=== PATIENT | male | born 1955 | race Caucasian/White ===

== ENCOUNTER 2017-12-09 08:16 | Emergency (ER) | payer BC, OTHER ==
[~2017-12-09] VITALS: Ht 175.3 cm; Wt 82.0 kg
[~2017-12-09 08:16] MED LIST: ACID CONTROL150 MG PO; ADULT LOW DOSE81 M1 PO; ASCORBIC ACID500 M3 PO; ASPIRIN E.C.81 M1 PO; Aranesp IV; BENTYL20 MG PO; CLOTRIMAZOLE10 MG PO; COLACE100 MG PO; DILAUDID2 MG PO; DOCUSATE SODIU100 MG PO; DOXYCYCLINE HY100 M3 PO; FEOSOL325 MG PO; FLOMAX0.4 MG PO; IRON55 MG PO; LASIX20 MG PO; LASIX40 MG PO; LEFLUNOMIDE10 MG PO; LEFLUNOMIDE20 MG PO; LEVEMIR FL100 UNITS/ SC; LOPRESSOR25 MG PO; LYRICA150 MG PO; LYRICA75 MG PO; MAG-OXIDE400 MG PO; MULTIVITAMIN1 EAC2 PO; MYFORTIC360 MG PO; NORVASC5 MG PO; NOVOLOG PE100 UNITS/ SC; Nephro-Vite,Rena-Vit PO; OXYCODONE HCL10 MG PO; PANTOPRAZOLE SO40 MG PO; PREDNISONE10 MG PO; PREDNISONE5 MG PO; PROGRAF0.5 MG PO; PROGRAF1 MG PO; REGLAN5 MG PO; RESTASIS 01 DROP/0.4 RIGHT EYE; ROCALTROL0.25 MCG PO; Rocaltrol PO; SEPTRA 80-4001 EACH PO; TACROLIMUS ANHYD1 MG PO; TRAMADOL HCL50 MG PO; TYLENOL EXTRA500 MG PO; Tylenol Regular Stre PO; VALCYTE450 MG PO; VENOFER20 MG/ML IV; VIBRAMYCIN100 MG PO; VITAMIN D1000 INTUN PO; VITAMIN D2000 INTUN PO; ZOCOR20 MG PO; ZYVOX600 MG PO; Zocor PO
[2017-12-09 09:54] LABS: BASOPHIL (%) 0.2 % (0-1); EOSINOPHIL (%) 0 % (0-5); HEMATOCRIT 32.1 % (38.0-50.0); HEMOGLOBIN 10.8 G/DL (12.5-16.6); IMMATURE GRANULOCYTE (%) 0.8 % (0.0-0.7); LYMPHOCYTE (%) 2.8 % (15-42); LYMPHOCYTE COUNT 0.5 K/uL (1.0-2.8); MCH 27.1 PG (29.0-34.0); MCHC 33.6 G/DL (30.0-36.0); MCV 80.7 FL (86-99); MONOCYTE (%) 7.8 % (3-12); MONOCYTE COUNT 1.3 K/uL (0-0.8); NEUTROPHIL (%) 88.4 % (45-76); NEUTROPHIL COUNT 15.2 K/uL (1.8-6.4); PLATELET COUNT 205 K/uL (156-360); RBC DIS.WIDTH-CV 16.4 % (11.8-14.6); RBC DIS.WIDTH-SD 48.5 % (39-53); RED BLOOD COUNT 3.98 M/uL (4.00-5.50); WHITE BLOOD COUNT 17.2 K/uL (4.1-10.2)
[2017-12-09 10:04] LABS: ALBUMIN 3.6 g/dL (3.2-4.8)
[2017-12-09 10:05] LABS: CHLORIDE 102 mEq/L (99-109); POTASSIUM 3.3 mEq/L (3.7-5.4); SODIUM 136 mEq/L (136-147)
[2017-12-09 10:07] LABS: GLUCOSE 113 mg/dL (70-99); TOTAL PROTEIN 6.5 g/dL (6.4-8.3)
[2017-12-09 10:09] LABS: TOTAL BILIRUBIN 0.8 mg/dL (0.0-1.0)
[2017-12-09 10:10] LABS: ALKALINE PHOSPHATASE 135 IU/L (3-129)
[2017-12-09 10:11] LABS: CREATININE 0.8 mg/dL (0.6-1.3); GFR ESTIMATE (CALCULATED) > 59 mL/min/ (58.99-99999)
[2017-12-09 10:12] LABS: AST (GOT) 28 IU/L (2-34); UREA NITROGEN (BUN) 14 mg/dL (9-23)
[2017-12-09 10:13] LABS: ALT (GPT) 16 IU/L (3-49)
[2017-12-09 10:14] LABS: LIPASE 23 U/L (1.0-51.0)
[2017-12-09 11:30] LABS: APPEARANCE SL.HAZY ((CLEAR)); BILIRUBIN NEGATIVE; BLOOD SMALL; COLOR AMBER ((YELLOW)); GLUCOSE (STRIP) NEGATIVE; KETONES 80; LEUKOCYTES MODERATE; NITRITE POSITIVE; PROTEIN (STRIP) 100; SPECIFIC GRAVITY 1.023 (1.000-1.030); UROBILINOGEN 0.2 MG/DL (0.2-1.0)
[2017-12-09 12:20] LABS: BACTERIA RARE /HPF; EPITHELIAL CELLS NONE SEEN /HPF; MUCUS NONE SEEN /LPF; RED BLOOD CELLS RARE /HPF (0-5); UCUL ADDED? YES
[2017-12-09] MEDS ORDERED: ZOFRAN ODT4 MG PO (15:07)
[2017-12-09 15:43] VITALS: BP 191/104
[2017-12-12] MEDS ORDERED: ALEVE220 MG PO (14:14)
[2017-12-12] MEDS ORDERED: OS-CAL 500+D T1 EAC1 PO (14:16)
[2017-12-12] MEDS ORDERED: LORTAB 5-325 M1 EACH PO (14:16)
[2017-12-12] MEDS ORDERED: CELEXA10 MG PO (14:17)
[2017-12-12] MEDS ORDERED: [UNRECOGNIZED DRUG - OTHER] (14:18)
== END 2017-12-09 16:11 | disposition left against medical advice (07) ==
LOC: EME 08:16
PROVIDERS: Emergency Medicine
DX: N39.0 Urinary tract infection, site not specified (principal); E86.0 Dehydration; R11.2 Nausea with vomiting, unspecified; R06.02 Shortness of breath; R50.9 Fever, unspecified; Z94.83 Pancreas transplant status; Z94.0 Kidney transplant status; I70.0 Atherosclerosis of aorta; I12.0 Hypertensive chronic kidney disease with stage 5 chronic kidney disease or end stage renal disease; E11.22 Type 2 diabetes mellitus with diabetic chronic kidney disease; N18.6 End stage renal disease; Z99.2 Dependence on renal dialysis; Z79.4 Long term (current) use of insulin; Z96.41 Presence of insulin pump (external) (internal); Z79.52 Long term (current) use of systemic steroids; Z79.82 Long term (current) use of aspirin; E78.5 Hyperlipidemia, unspecified; Z87.891 Personal history of nicotine dependence
CPT/HCPCS: 71045; 80053; 80197 90; 81003; 83605; 83690; 85025; 87040; 87077; 87086; 87186; 99281; 99284; J0696; J0780; J2060; J2405; J7030

== ENCOUNTER 2017-12-12 14:32 | Emergency (ER) | payer BC, OTHER ==
[~2017-12-12] VITALS: Ht 175.3 cm; Wt 84.0 kg
[~2017-12-12 14:32] MED LIST changes: +ALEVE220 MG PO; +CELEXA10 MG PO; +LORTAB 5-325 M1 EACH PO; +OS-CAL 500+D T1 EAC1 PO; +ZOFRAN ODT4 MG PO; +[UNRECOGNIZED DRUG - OTHER]
[2017-12-12 16:48] LABS: HEMATOCRIT 31.4 % (38.0-50.0); HEMOGLOBIN 10.6 G/DL (12.5-16.6); MCH 26.7 PG (29.0-34.0); MCHC 33.8 G/DL (30.0-36.0); MCV 79.1 FL (86-99); PLATELET COUNT 253 K/uL (156-360); RBC DIS.WIDTH-CV 15.8 % (11.8-14.6); RBC DIS.WIDTH-SD 45.4 % (39-53); RED BLOOD COUNT 3.97 M/uL (4.00-5.50); WHITE BLOOD COUNT 7.5 K/uL (4.1-10.2)
[2017-12-12 16:57] LABS: ALBUMIN 3.2 g/dL (3.2-4.8); CHLORIDE 107 mEq/L (99-109); POTASSIUM 2.9 mEq/L (3.7-5.4)
[2017-12-12 16:58] LABS: SODIUM 143 mEq/L (136-147)
[2017-12-12 17:00] LABS: GLUCOSE 89 mg/dL (70-99); TOTAL PROTEIN 5.9 g/dL (6.4-8.3)
[2017-12-12 17:02] LABS: TOTAL BILIRUBIN 0.6 mg/dL (0.0-1.0)
[2017-12-12 17:03] LABS: ALKALINE PHOSPHATASE 127 IU/L (3-129)
[2017-12-12 17:04] LABS: CREATININE 0.7 mg/dL (0.6-1.3); GFR ESTIMATE (CALCULATED) > 59 mL/min/ (58.99-99999)
[2017-12-12 17:05] LABS: AST (GOT) 24 IU/L (2-34); DIRECT BILIRUBIN 0.3 mg/dL (0.0-0.3); UREA NITROGEN (BUN) 10 mg/dL (9-23)
[2017-12-12 17:06] LABS: ALT (GPT) 17 IU/L (3-49)
[2017-12-12 17:07] LABS: LIPASE 15 U/L (1.0-51.0)
[2017-12-12 18:08] LABS: APPEARANCE CLEAR ((CLEAR)); BILIRUBIN NEGATIVE; BLOOD NEGATIVE; COLOR YELLOW ((YELLOW)); GLUCOSE (STRIP) NEGATIVE; KETONES 20; LEUKOCYTES NEGATIVE; NITRITE NEGATIVE; PROTEIN (STRIP) 100; SPECIFIC GRAVITY 1.017 (1.000-1.030); UROBILINOGEN 0.2 MG/DL (0.2-1.0)
[2017-12-12] MEDS ORDERED: K-DUR20 MEQ PO (18:23)
[2017-12-12 18:32] LABS: BACTERIA NONE SEEN /HPF; EPITHELIAL CELLS RARE /HPF; HYALINE CASTS 0-5 /LPF; MUCUS 1+ /LPF; RED BLOOD CELLS 0-5 /HPF (0-5); UCUL ADDED? YES
[2017-12-12 18:40] VITALS: BP 180/76
== END 2017-12-12 18:41 | disposition home or self-care (01) ==
LOC: EME 14:32
PROVIDERS: Physician Assistant
DX: I12.9 Hypertensive chronic kidney disease with stage 1 through stage 4 chronic kidney disease, or unspecified chronic kidney disease (principal); N18.9 Chronic kidney disease, unspecified; E11.22 Type 2 diabetes mellitus with diabetic chronic kidney disease; N39.0 Urinary tract infection, site not specified; E11.319 Type 2 diabetes mellitus with unspecified diabetic retinopathy without macular edema; Z96.41 Presence of insulin pump (external) (internal); K21.9 Gastro-esophageal reflux disease without esophagitis; E78.5 Hyperlipidemia, unspecified; Z94.0 Kidney transplant status; Z94.83 Pancreas transplant status; Z87.891 Personal history of nicotine dependence
CPT/HCPCS: 80048; 80076; 81003; 83690; 85027; 87086; 93005; 99281; 99284; J2765

== ENCOUNTER 2018-01-01 19:27 | Inpatient (IN) | payer BC, OTHER ==
[~2018-01-01] VITALS: Ht 175.3 cm; Wt 81.6 kg
[~2018-01-01 19:27] MED LIST changes: +K-DUR20 MEQ PO; -[UNRECOGNIZED DRUG - OTHER]; +[UNRECOGNIZED DRUG - OTHER] RIGHT EYE
[2018-01-01 22:11] LABS: HEMATOCRIT 31.7 % (38.0-50.0); HEMOGLOBIN 10.6 G/DL (12.5-16.6); MCH 27.3 PG (29.0-34.0); MCHC 33.4 G/DL (30.0-36.0); RBC DIS.WIDTH-CV 16.5 % (11.8-14.6); RBC DIS.WIDTH-SD 49.1 % (39-53); RED BLOOD COUNT 3.88 M/uL (4.00-5.50); WHITE BLOOD COUNT 11.2 K/uL (4.1-10.2)
[2018-01-01 22:19] LABS: MCV 81.7 FL (86-99)
[2018-01-01 22:20] LABS: ALBUMIN 3.2 g/dL (3.2-4.8); CHLORIDE 102 mEq/L (99-109); POTASSIUM 3.6 mEq/L (3.7-5.4); SODIUM 137 mEq/L (136-147)
[2018-01-01 22:22] LABS: GLUCOSE 128 mg/dL (70-99)
[2018-01-01 22:23] LABS: TOTAL PROTEIN 6.1 g/dL (6.4-8.3)
[2018-01-01 22:24] LABS: TOTAL BILIRUBIN 0.8 mg/dL (0.0-1.0)
[2018-01-01 22:26] LABS: ALKALINE PHOSPHATASE 132 IU/L (3-129); CREATININE 0.8 mg/dL (0.6-1.3); GFR ESTIMATE (CALCULATED) > 59 mL/min/ (58.99-99999)
[2018-01-01 22:27] LABS: UREA NITROGEN (BUN) 14 mg/dL (9-23)
[2018-01-01 22:28] LABS: AST (GOT) 21 IU/L (2-34)
[2018-01-01 22:29] LABS: ALT (GPT) 13 IU/L (3-49)
[2018-01-01 22:48] LABS: PLAT.SUFFICIENCY ADEQUATE; PLATELET COUNT 174 K/uL (156-360)
[2018-01-01] MEDS ORDERED: FEOSOL325 MG PO (23:27)
[2018-01-01 23:29] LABS: APPEARANCE SL.HAZY ((CLEAR)); BILIRUBIN NEGATIVE; BLOOD SMALL; COLOR YELLOW ((YELLOW)); GLUCOSE (STRIP) NEGATIVE; KETONES NEGATIVE; LEUKOCYTES LARGE; NITRITE NEGATIVE; PROTEIN (STRIP) 100; SPECIFIC GRAVITY 1.016 (1.000-1.030); UROBILINOGEN 0.2 MG/DL (0.2-1.0)
[2018-01-01] MEDS ORDERED: CATAPRES0.1 MG PO (23:29)
[2018-01-01] MEDS ORDERED: HYDROEYE BOTH EYES (23:30)
[2018-01-02] VITALS (8 sets, daily range): BP systolic 122–207; BP diastolic 75–84
[2018-01-02 00:16] LABS: BACTERIA 3+ /HPF; EPITHELIAL CELLS RARE /HPF; MUCUS TRACE /LPF; RED BLOOD CELLS 40-50 /HPF (0-5); UCUL ADDED? YES; WHITE BLOOD CELLS TNTC /HPF (0-5)
[2018-01-02 07:11] LABS: HEMATOCRIT 30.1 % (38.0-50.0); HEMOGLOBIN 9.6 G/DL (12.5-16.6); MCH 26.5 PG (29.0-34.0); MCHC 31.9 G/DL (30.0-36.0); MCV 83.1 FL (86-99); PLATELET COUNT 157 K/uL (156-360); RBC DIS.WIDTH-CV 16.5 % (11.8-14.6); RBC DIS.WIDTH-SD 50.9 % (39-53); RED BLOOD COUNT 3.62 M/uL (4.00-5.50); WHITE BLOOD COUNT 8.8 K/uL (4.1-10.2)
[2018-01-02 07:24] LABS: CHLORIDE 102 MEQ/L (99-109); POTASSIUM 3.6 MEQ/L (3.7-5.4); SODIUM 135 MEQ/L (136-147)
[2018-01-02 07:40] LABS: ALBUMIN 2.6 G/DL (3.2-4.8); ALKALINE PHOSPHATASE 98 IU/L (3-129); ALT (GPT) 9 IU/L (3-49); AST (GOT) 16 IU/L (2-34); CREATININE 0.7 MG/DL (0.6-1.3); GFR ESTIMATE (CALCULATED) > 59 mL/min/ (58.99-99999); GLUCOSE 108 mg/dL (70-99); TOTAL BILIRUBIN 0.5 MG/DL (0.0-1.0); TOTAL PROTEIN 4.7 G/DL (6.4-8.3); UREA NITROGEN (BUN) 12 mg/dL (9-23)
[2018-01-03 04:00] VITALS: BP 196/75
[2018-01-03 05:59] LABS: ALBUMIN 2.7 G/DL (3.2-4.8); CHLORIDE 105 MEQ/L (99-109); CREATININE 0.7 MG/DL (0.6-1.3); GFR ESTIMATE (CALCULATED) > 59 mL/min/ (58.99-99999); GLUCOSE 92 mg/dL (70-99); PHOSPHORUS 2.6 mg/dL (2.5-4.9); POTASSIUM 3.4 MEQ/L (3.7-5.4); SODIUM 135 MEQ/L (136-147); UREA NITROGEN (BUN) 11 mg/dL (9-23)
[2018-01-03 07:25] VITALS: BP 183/81
[2018-01-03 11:30] VITALS: BP 197/89
[2018-01-03 15:22] VITALS: BP 178/77
[2018-01-03 19:32] VITALS: BP 202/82
[2018-01-04 01:10] VITALS: BP 166/98
[2018-01-04 05:06] LABS: BASOPHIL (%) 0.4 % (0-1); EOSINOPHIL (%) 1.5 % (0-5); EOSINOPHIL COUNT 0.1 K/uL (0-0.3); HEMATOCRIT 31.1 % (38.0-50.0); HEMOGLOBIN 9.9 G/DL (12.5-16.6); IMMATURE GRANULOCYTE (%) 0.5 % (0.0-0.7); LYMPHOCYTE (%) 6.2 % (15-42); LYMPHOCYTE COUNT 0.5 K/uL (1.0-2.8); MCH 26.3 PG (29.0-34.0); MCHC 31.8 G/DL (30.0-36.0); MCV 82.5 FL (86-99); MONOCYTE (%) 13.4 % (3-12); MONOCYTE COUNT 1.1 K/uL (0-0.8); NEUTROPHIL COUNT 6.4 K/uL (1.8-6.4); PLATELET COUNT 189 K/uL (156-360); RBC DIS.WIDTH-CV 16.5 % (11.8-14.6); RBC DIS.WIDTH-SD 49.5 % (39-53); RED BLOOD COUNT 3.77 M/uL (4.00-5.50); WHITE BLOOD COUNT 8.2 K/uL (4.1-10.2)
[2018-01-04 05:24] LABS: ALBUMIN 2.6 G/DL (3.2-4.8); CHLORIDE 104 MEQ/L (99-109); CREATININE 0.7 MG/DL (0.6-1.3); GFR ESTIMATE (CALCULATED) > 59 mL/min/ (58.99-99999); GLUCOSE 74 mg/dL (70-99); PHOSPHORUS 2.8 mg/dL (2.5-4.9); POTASSIUM 3.4 MEQ/L (3.7-5.4); SODIUM 137 MEQ/L (136-147); UREA NITROGEN (BUN) 10 mg/dL (9-23)
[2018-01-04 05:25] LABS: IRON 5 MCG/DL (35-150); TRANSFERRIN (TIBC) 166.4 mg/dL (215-380); TRANSFERRIN SATUR. 3 % (20-55)
[2018-01-04 07:28] VITALS: BP 185/79
[2018-01-04 08:02] LABS: FERRITIN 280 NG/ML (22-322)
[2018-01-04 15:17] VITALS: BP 177/74
[2018-01-04 17:44] VITALS: BP 197/80
[2018-01-04 18:10] VITALS: BP 199/80
[2018-01-04 21:30] VITALS: BP 160/80
[2018-01-05 00:46] VITALS: BP 160/71
[2018-01-05 03:49] VITALS: BP 160/71
[2018-01-05 06:22] LABS: ALBUMIN 2.6 G/DL (3.2-4.8); CHLORIDE 105 MEQ/L (99-109); CREATININE 0.8 MG/DL (0.6-1.3); GFR ESTIMATE (CALCULATED) > 59 mL/min/ (58.99-99999); PHOSPHORUS 2.6 mg/dL (2.5-4.9); POTASSIUM 3.4 MEQ/L (3.7-5.4); SODIUM 137 MEQ/L (136-147); UREA NITROGEN (BUN) 7 mg/dL (9-23)
[2018-01-05 06:32] LABS: GLUCOSE 113 mg/dL (70-99)
[2018-01-05 06:50] VITALS: BP 176/78
[2018-01-05 12:29] VITALS: BP 204/78
[2018-01-05 12:54] VITALS: BP 176/72
[2018-01-05 20:00] VITALS: BP 136/82
[2018-01-06] VITALS: BP 138/88
[2018-01-06 07:16] VITALS: BP 117/57
[2018-01-06 11:49] VITALS: BP 119/57
[2018-01-06 14:39] LABS: HEMATOCRIT 28.6 % (38.0-50.0); HEMOGLOBIN 9.2 G/DL (12.5-16.6); MCH 26.4 PG (29.0-34.0); MCHC 32.2 G/DL (30.0-36.0); MCV 81.9 FL (86-99); PLATELET COUNT 230 K/uL (156-360); RBC DIS.WIDTH-CV 16.9 % (11.8-14.6); RBC DIS.WIDTH-SD 50.2 % (39-53); RED BLOOD COUNT 3.49 M/uL (4.00-5.50); WHITE BLOOD COUNT 4.5 K/uL (4.1-10.2)
[2018-01-06 15:06] LABS: ALBUMIN 2.7 G/DL (3.2-4.8); ALT (GPT) 12 IU/L (3-49); CHLORIDE 106 MEQ/L (99-109); CREATININE 0.9 MG/DL (0.6-1.3); GFR ESTIMATE (CALCULATED) > 59 mL/min/ (58.99-99999); GLUCOSE 113 mg/dL (70-99); POTASSIUM 3.4 MEQ/L (3.7-5.4); SODIUM 139 MEQ/L (136-147); TOTAL BILIRUBIN 0.4 MG/DL (0.0-1.0); TOTAL PROTEIN 4.8 G/DL (6.4-8.3); UREA NITROGEN (BUN) 7 mg/dL (9-23)
[2018-01-06 15:11] LABS: ALKALINE PHOSPHATASE 174 IU/L (3-129); AST (GOT) 26 IU/L (2-34)
[2018-01-06] MEDS ORDERED: CEFTRIAXONE2 G1 IV (15:28)
[2018-01-06] MEDS ORDERED: FLUCONAZOLE200 MG PO (15:29)
[2018-01-06] MEDS ORDERED: LOSARTAN POTASS50 MG PO (15:30)
[2018-01-06] MEDS ORDERED: CLONIDINE1 EACH TD (15:30)
[2018-01-06] MEDS ORDERED: NIFEDIPINE ER60 MG PO (15:30)
[2018-01-06 15:40] VITALS: BP 113/55
[2018-01-06] MEDS ORDERED: FLORASTOR250 MG PO (16:14)
== END 2018-01-06 17:02 | disposition home or self-care (01) | DRG 689 ==
LOC: EME → EDBD 19:27 → EDOF 23:24 → 4SOUTH 23:24 → ENRESERV 23:28 → 4SOUTH 01-02 01:04
PROVIDERS: Hospitalist; Internal Medicine; Internal Medicine Nephrology; Physician Assistant Medical; Specialist
PROC: 0DB68ZX Excision of Stomach, Via Natural or Artificial Opening Endoscopic, Diagnostic (ICD-10-PCS; principal; 2018-01-01)
DX: N39.0 Urinary tract infection, site not specified (principal); E66.9 Obesity, unspecified; E78.5 Hyperlipidemia, unspecified; I12.9 Hypertensive chronic kidney disease with stage 1 through stage 4 chronic kidney disease, or unspecified chronic kidney disease; N18.6 End stage renal disease; H54.62 Unqualified visual loss, left eye, normal vision right eye; F41.9 Anxiety disorder, unspecified; E10.319 Type 1 diabetes mellitus with unspecified diabetic retinopathy without macular edema; F32.9 Major depressive disorder, single episode, unspecified; B96.20 Unspecified Escherichia coli [E. coli] as the cause of diseases classified elsewhere; I10 Essential (primary) hypertension; D63.1 Anemia in chronic kidney disease; I25.10 Atherosclerotic heart disease of native coronary artery without angina pectoris; N40.0 Benign prostatic hyperplasia without lower urinary tract symptoms; N18.2 Chronic kidney disease, stage 2 (mild); K21.9 Gastro-esophageal reflux disease without esophagitis; E10.22 Type 1 diabetes mellitus with diabetic chronic kidney disease; K29.70 Gastritis, unspecified, without bleeding; E86.0 Dehydration; N31.9 Neuromuscular dysfunction of bladder, unspecified; K29.80 Duodenitis without bleeding; B37.81 Candidal esophagitis; E10.39 Type 1 diabetes mellitus with other diabetic ophthalmic complication; Z90.49 Acquired absence of other specified parts of digestive tract; Z79.4 Long term (current) use of insulin; Z99.2 Dependence on renal dialysis; Z97.0 Presence of artificial eye; Z87.440 Personal history of urinary (tract) infections; Z79.899 Other long term (current) drug therapy; Z79.82 Long term (current) use of aspirin; Z94.83 Pancreas transplant status; Z94.0 Kidney transplant status
CPT/HCPCS: 74176; 80053; 80069; 81003; 82607; 82728; 83540; 83605; 84075 90; 84080 90; 84466; 85025; 85027; 87040; 87177; 87493; 87506; 88305; 88312; 88342 TC; 99281; 99285; C9113; G0378; J0360; J0696; J1200; J1644; J2060; J2270; J2405; J2765; J2997; J3480; J7030; J7040; J7507; J7512